=== PATIENT | male | born 1960 | race Caucasian/White ===

== ENCOUNTER 2023-11-17 14:11 | Emergency (ER) | payer BC, SELFPAY ==
--- NOTE | ~2023-11-17 | XR_ITS ---
XR forearm LT 2V DATE: 11/17/2023 14:32 INDICATION: Fall today. TECHNIQUE: AP and lateral views COMPARISON: None FINDINGS: No fracture, dislocation, periosteal reaction or bone destruction is detected. Normal align ment at the elbow and wrist joints. IMPRESSION: No fracture or dislocation Reviewed, dictated and finalized at location A. IMPRESSION: No fracture or dislocation
--- NOTE | ~2023-11-17 | XR_ITS ---
XR hand LT min 3V DATE: 11/17/2023 14:32 INDICATION: Fall. Prominent swelling and ventricles TECHNIQUE: 3 views COMPARISON: None FINDINGS: No fracture or dislocation, periosteal reaction or bone destruction is evident. There is os teoarthritic change at the metacarpophalangeal joints primarily. No erosive change or chondrocalcinos is is evident. IMPRESSION: No fracture or dislocation is evident Reviewed, dictated and finalized at location A.
[2023-11-17 14:15] VITALS: BP 127/62; PULSE 67; RESP 19; TEMP 36.4; O2SAT 97
--- NOTE | 2023-11-17 14:43 | ED.FALL ---
HPI - Fall General Chief Complaint: Fall Stated Complaint: L HAND/ARM SKIN TEAR Time Seen by Provider: 11/17/23 14:12 Source: patient and family Mode of arrival: ambulatory Limitations: no limitations History of Present Illness HPI Narrative: this is a 63-year-old male that presents with some skin tears and a small laceration to the webbing between his 2nd and 3rd finger with skin tears to his left 4 with some mild swelling. Has good range of motion although tender in the forearm and his hand and wrist with no numbness or tingling. Patient tripped while at home over a rug with no other injuries. complaint: fall Onset (ago): hour(s) Fall from: standing Place fall occurred: home Loss of consciousness: none Prolonged down time: no Symptoms prior to fall: none Context: tripped/slipped Related Data Home Medications Medication Instructions Recorded Confirmed Unable to Obtain Home Medications 11/17/23 11/17/23 Allergies Allergy/AdvReac Type Severity Reaction Status Date / Time clindamycin Allergy Anaphylaxis Verified 11/17/23 14:23 Review of Systems Review of Systems: All systems reviewed & are unremarkable except as noted in HPI and below PMFSH Past Medical History Medical History CAD (coronary artery disease) Exam Const: General: healthy appearing Nutritional Appearance: well nourished Orientation/consciousness: patient oriented x3 Eyes: Conjunctivae: conjunctivae normal Pupils: Equal, round and reactive pupils present Chest: Chest palpation & inspection: normal inspection of the chest Resp: Effort & Inspection: normal respiratory effort Auscultation: clear to auscultation bilaterally Cardio: Rate: regular rate Rhythm: regular rhythm GI: GI Palp: Yes Soft to palpation Auscultation: normal bowel sounds Skin: Wounds: wounds noted Other: skin tears to his left forearm with a non gaping well-approximated laceration to the left webbing of his index finger and 2nd finger. Neuro: General: patient oriented x3 Extrem: General: normal to inspection Psych: Mental Status: mental status grossly normal Course Course Emergency Course: X-rays performed which show no acute fractures patient was updated with his tetanus skin tears were were wrapped and laceration was repaired with Dermabond. Patient tolerated procedure well. Vital Signs Vital signs: Vital Signs Temperature 36.4 C L 11/17/23 14:15 Pulse Rate 67 11/17/23 14:15 Respiratory Rate 19 11/17/23 14:15 Blood Pressure 127/62 11/17/23 14:15 Pulse Oximetry 97 11/17/23 14:15 Oxygen Delivery Room Air 11/17/23 14:15 Temperature 36.4 C L 11/17/23 14:15 Pulse Rate 67 11/17/23 14:15 Respiratory Rate 19 11/17/23 14:15 Blood Pressure 127/62 11/17/23 14:15 Pulse Oximetry 97 11/17/23 14:15 Oxygen Delivery Room Air 11/17/23 14:15 Procedures Laceration Laceration 1: Date: 11/17/23 Site: hand Side (If applicable): left Size (cm): 2 Description: linear and flap Pre-repair: wound explored, irrigated and irrigated extensively ====== Skin Level ====== Skin layer closed with: dermabond ====== Subcutaneous Layer ====== ====== Muscle Layer ====== ====== Tendon Layer ====== Critical Care Time Critical Care Time Critical Care Time: No Discharge Plan Discharge Clinical Impression: Laceration, Skin tear Patient Disposition: Home, Self-Care Condition: Stable Instructions: Antibiotic Form, Laceration (ED), Skin Tear (ED) Additional Instructions: advised follow-up with primary care physician as needed for further evaluation treatment Prescriptions: No Action Unable to Obtain Home Medications Follow-up/Referrals: Ismael,MIS Lundy [Primary Care Provider] - Time of Disposition: 14:50
[2023-11-17] MEDS: TETANUS,DIPHTHERIA,AC PERTUSSIS ADULT 0.5 ML (ADACEL) IM (14:56)
[2023-11-17 15:10] VITALS: BP 115/65; PULSE 65; RESP 17; TEMP 36.4; O2SAT 96
== END 2023-11-17 15:10 | disposition home or self-care (01) ==
PROVIDERS: Emergency Provider Emergency Medicine; PCP Physician Assistant
DX: S61.412A Laceration without foreign body of left hand, initial encounter (principal); W18.09XA Striking against other object with subsequent fall, initial encounter; Z23 Encounter for immunization; I25.10 Atherosclerotic heart disease of native coronary artery without angina pectoris
CPT/HCPCS: 12001; 73090; 73130; 90471; 90715; 99283